=== PATIENT | male | born 1960 | race Caucasian/White ===

== ENCOUNTER → 2021-04-07 | Outpatient (CLI) | payer MEDICARE, OTHER ==
[~2021-04-07] VITALS: Ht 175.3 cm; Wt 92.5 kg
== END ==
LOC: EROP 14:39
DX: U07.1 COVID-19 (principal); E66.9 Obesity, unspecified; I51.9 Heart disease, unspecified; E87.1 Hypo-osmolality and hyponatremia
CPT/HCPCS: 96365